=== PATIENT | female | born 2005 | race Caucasian/White ===

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

== ENCOUNTER 2023-08-08 16:53 | Emergency (ER) | payer OTHER ==
[~2023-08-08] VITALS: Ht 165.1 cm; Wt 104.3 kg
[2023-08-08 17:25] VITALS: BP 149/107
[2023-08-08] MEDS ORDERED: NS 1,000 ML IV SCH (17:30)
[2023-08-08 17:49] LABS: BASOPHILS ABSOLUTE AUTO 0.04 K/mm3 (0.00-0.23); BASOPHILS PERCENT AUTO 0 % (0-2); EOSINOPHILS ABSOLUTE AUTO 0.07 K/mm3 (0.00-0.68); EOSINOPHILS PERCENT AUTO 1 % (0-6); Hemoglobin 11.2 g/dL (11.5-16.0); IMMATURE GRAN ABSOLUTE AUTO 0.06 K/mm3 (0.00-0.10); IMMATURE GRAN PERCENT AUTO 1 % (0-1); LYMPHOCYTES ABSOLUTE AUTO 1.99 K/mm3 (0.84-5.20); LYMPHOCYTES PERCENT AUTO 19 % (21-46); MONOCYTES ABSOLUTE AUTO 0.77 K/mm3 (0.16-1.47); MONOCYTES PERCENT AUTO 7 % (4-13); Mean Corpuscular HGB 22.6 pg (26.0-34.0); Mean Corpuscular HGB Conc 31.1 g/dL (31.5-36.5); Mean Corpuscular Volume 73 fL (80-100); Mean Platelet Volume 10.2 fL (9.1-12.4); NEUTROPHILS ABSOLUTE AUTO 7.59 K/mm3 (1.96-9.15); NEUTROPHILS PERCENT AUTO 72 % (41-73); Platelet Count 359 K/mm3 (150-400); RDW Standard Deviation 43.9 fL (35.1-46.3); Red Blood Cell Count 4.95 M/mm3 (3.80-5.20); White Blood Cell Count 10.52 K/mm3 (4.00-11.30)
[2023-08-08 18:23] LABS: Albumin, Blood 3.2 g/dL (3.4-5.0); Albumin/Globulin Ratio 0.8 (0.8-1.8); Bilirubin, Total 0.2 mg/dL (0.1-1.0); Bun/Creatinine Ratio 12.9 (12.0-20.0); Calcium, Blood 8.6 mg/dL (8.5-10.1); Creatinine, Blood 0.46 mg/dL (0.40-1.00); Globulin, Blood 4.1 g/dL (2.2-4.0); Potassium, Blood 3.6 mmol/L (3.5-5.5); Total Protein, Blood 7.3 g/dL (6.4-8.2)
[2023-08-08 18:43] LABS: Source, Urine Clean Catch
[2023-08-08 18:47] LABS: Appearance, Urine Hazy (Clear); Bilirubin, Urine Neg (Neg); Blood, Urine Neg (Neg); Color, Urine Yellow (P-Yellow); Glucose Qualitative, Urine Neg (Neg); Ketones, Urine 1+ (Neg); Leukocyte Esterase, Urine 2+ (Neg); Nitrite, Urine Neg (Neg); Protein, Urine 1+ (Neg); Specific Gravity, Urine 1.025 (1.003-1.022); Urobilinogen, Urine NORM (Normal)
[2023-08-08 19:13] LABS: Bacteria Many /hpf; Red Blood Cells, Urine 0-2 /hpf (0-2); Squamous Epithelial Cells Many /hpf (Few)
[2023-08-08 19:14] LABS: Amorphous Light (0-Heavy); Mucus Heavy (0-Heavy)
[2023-08-08 19:15] LABS: Other Crystals Many /hpf
[2023-08-08 19:16] LABS: Transitional Epithelial Cells Rare /hpf (0-Rare)
== END 2023-08-08 19:30 | disposition home or self-care (01) ==
LOC: ER 16:53
PROVIDERS: Physician Assistant
DX: O26.891 Other specified pregnancy related conditions, first trimester (principal); R10.31 Right lower quadrant pain; R10.32 Left lower quadrant pain; R10.10 Upper abdominal pain, unspecified; Z3A.12 12 weeks gestation of pregnancy; Z88.0 Allergy status to penicillin; Z88.1 Allergy status to other antibiotic agents; Z91.040 Latex allergy status; J45.909 Unspecified asthma, uncomplicated
CPT/HCPCS: 76815; 80053; 81001; 84702; 85025; 87086; 96360; 99284-25; J7030

== ENCOUNTER 2024-01-30 20:27 | Inpatient (IN) | payer OTHER ==
[2024-01-30] VITALS (16 sets, daily range): BP systolic 131–168; BP diastolic 84–110
[~2024-01-30] VITALS: Ht 162.6 cm; Wt 119.1 kg
[2024-01-30] MEDS ORDERED: Misoprostol 200 MCG Tab PR PRN (20:55)
[2024-01-30] MEDS ORDERED: OXYTOCIN/RINGER'S LACTATE 500 ML IV PRN (20:55)
[2024-01-30] MEDS ORDERED: FentaNYL 2mcg/ml-Bup 0.1% Epd 250 ML EPI PRN (20:55)
[2024-01-30] MEDS ORDERED: Carboprost Tromethamine 250 MCG/ML 1ML Amp IM PRN (20:55)
[2024-01-30] MEDS ORDERED: Tranexamic Acid 100 ML IV SCH (20:55)
[2024-01-30] MEDS ORDERED: ePHEDrine Sulfate 50 MG/ML 1ML Injection XX PRN (20:55)
[2024-01-30] MEDS ORDERED: Acetaminophen 500 MG Tab PO PRN (20:55)
[2024-01-30] MEDS ORDERED: Misoprostol 200 MCG Tab BC PRN (20:55)
[2024-01-30] MEDS ORDERED: Oxytocin 10 Unit / ML Vial IM PRN (20:55)
[2024-01-30] MEDS ORDERED: Methylergonovine Maleate 0.2MG / ML 1ML Amp IM PRN (20:55)
[2024-01-30] MEDS ORDERED: Ondansetron HCl 2 MG / ML 2ML Vial IV PRN ×2 (20:55→22:55)
[2024-01-30] MEDS ORDERED: Lactated Ringer's 1,000 ML IV PRN ×3 (20:55→21:00)
[2024-01-30] MEDS ORDERED: FentaNYL Citrate 50 MCG/ML 2 ML Injection IV PRN (21:00)
[2024-01-30] MEDS ORDERED: Calcium Carbonate 500 MG Tab Chew PO PRN (21:00)
[2024-01-30] MEDS ORDERED: ACET500 PO (21:16)
[2024-01-30] MEDS ORDERED: UNISOM PM PAIN1 EACH PO (21:16)
[2024-01-30 21:30] LABS: BASOPHILS ABSOLUTE AUTO 0.04 K/mm3 (0.00-0.23); BASOPHILS PERCENT AUTO 0 % (0-2); EOSINOPHILS ABSOLUTE AUTO 0.01 K/mm3 (0.00-0.68); EOSINOPHILS PERCENT AUTO 0 % (0-6); Hematocrit 33.7 % (33.0-51.0); Hemoglobin 10.6 g/dL (11.5-16.0); IMMATURE GRAN PERCENT AUTO 1 % (0-1); LYMPHOCYTES ABSOLUTE AUTO 1.49 K/mm3 (0.84-5.20); LYMPHOCYTES PERCENT AUTO 9 % (21-46); MONOCYTES ABSOLUTE AUTO 0.92 K/mm3 (0.16-1.47); MONOCYTES PERCENT AUTO 6 % (4-13); Mean Corpuscular HGB 22.6 pg (26.0-34.0); Mean Corpuscular HGB Conc 31.5 g/dL (31.5-36.5); Mean Corpuscular Volume 72 fL (80-100); Mean Platelet Volume 11.2 fL (9.1-12.4); NEUTROPHILS ABSOLUTE AUTO 14.09 K/mm3 (1.96-9.15); NEUTROPHILS PERCENT AUTO 85 % (41-73); Platelet Count 301 K/mm3 (150-400); RDW Coefficient Variation 17.1 % (11.7-14.2); RDW Standard Deviation 43.4 fL (35.1-46.3); White Blood Cell Count 16.65 K/mm3 (4.00-11.30)
[2024-01-30] MEDS ORDERED: ePHEDrine Sulfate 50 MG/ML 1ML Injection IV PRN (22:50)
[2024-01-30] MEDS ORDERED: Metoclopramide HCl 5MG / ML 2ML Vial IV PRN (22:55)
[2024-01-30] MEDS ORDERED: DiphenhydrAMINE HCl 50 MG/ML 1ML Vial IV PRN (22:55)
[2024-01-30] MEDS ORDERED: Naloxone HCl 0.4MG / ML 1ML Vial IV PRN (22:55)
[2024-01-31] VITALS (74 sets, daily range): BP systolic 112–162; BP diastolic 64–98
[2024-01-31] MEDS ORDERED: Labetalol HCL 100 MG TAB PO ONE ×2 (00:25→11:55)
[2024-01-31] MEDS ORDERED: Lidocaine 2% 5 ML SDV ONE ×2 (00:42→00:58)
[2024-01-31] MEDS ORDERED: DiphenhydrAMINE HCl 50 MG/ML 1ML Vial IV PRN (04:15)
[2024-01-31] MEDS ORDERED: ePHEDrine Sulfate 50 MG/ML 1ML Injection IV PRN (04:15)
[2024-01-31] MEDS ORDERED: Naloxone HCl 0.4MG / ML 1ML Vial IV PRN (04:20)
[2024-01-31] MEDS ORDERED: Metoclopramide HCl 5MG / ML 2ML Vial IV PRN (04:20)
[2024-01-31] MEDS ORDERED: Ondansetron HCl 2 MG / ML 2ML Vial IV PRN (04:20)
[2024-01-31] MEDS ORDERED: Lidocaine HCl 2% 20 MG/ML 5ML SYR IV SCH (05:00)
[2024-01-31] MEDS ORDERED: Misoprostol 200 MCG Tab PR PRN (11:05)
[2024-01-31] MEDS ORDERED: OXYTOCIN/RINGER'S LACTATE 500 ML IV SCH (11:10)
[2024-01-31] MEDS ORDERED: Benzocaine Topical Anesthetic Spray 60GM TOP PRN (11:10)
[2024-01-31] MEDS ORDERED: Docusate Sodium 100 MG Cap PO PRN (11:10)
[2024-01-31] MEDS ORDERED: Rho(D) Immune Globulin 300 MCG / SYR IM ONE (11:10)
[2024-01-31] MEDS ORDERED: Acetaminophen 325 MG TABLET PO PRN (11:10)
[2024-01-31] MEDS ORDERED: Methylergonovine Maleate 0.2MG / ML 1ML Amp IM PRN (11:10)
[2024-01-31] MEDS ORDERED: Witch Hazel/Glycerin PADS TOP PRN (11:15)
[2024-01-31] MEDS ORDERED: FLU VACC TS2024-25(6MOS UP)/PF 45 MCG/0.5 ML SYRINGE IM PRN (11:15)
[2024-01-31] MEDS ORDERED: Lactated Ringer's 1,000 ML IV SCH (11:15)
[2024-01-31] MEDS ORDERED: Ibuprofen 400 MG Tab PO PRN (11:15)
[2024-01-31] MEDS ORDERED: Ketorolac Tromethamine 30mg Vial IV SCH (12:00)
[2024-01-31] MEDS ORDERED: Labetalol HCL 100 MG TAB PO SCH (21:00)
[2024-02-01 01:28] VITALS: BP 135/72
[2024-02-01 05:29] VITALS: BP 132/84
[2024-02-01] MEDS ORDERED: Ibuprofen 400 MG Tab PO PRN (06:00)
[2024-02-01 06:01] LABS: BASOPHILS ABSOLUTE AUTO 0.04 K/mm3 (0.00-0.23); BASOPHILS PERCENT AUTO 0 % (0-2); EOSINOPHILS ABSOLUTE AUTO 0.11 K/mm3 (0.00-0.68); EOSINOPHILS PERCENT AUTO 1 % (0-6); Hematocrit 26.4 % (33.0-51.0); Hemoglobin 8.4 g/dL (11.5-16.0); IMMATURE GRAN ABSOLUTE AUTO 0.12 K/mm3 (0.00-0.10); IMMATURE GRAN PERCENT AUTO 1 % (0-1); LYMPHOCYTES ABSOLUTE AUTO 2.43 K/mm3 (0.84-5.20); LYMPHOCYTES PERCENT AUTO 18 % (21-46); MONOCYTES ABSOLUTE AUTO 1.19 K/mm3 (0.16-1.47); MONOCYTES PERCENT AUTO 9 % (4-13); Mean Corpuscular HGB 22.8 pg (26.0-34.0); Mean Corpuscular HGB Conc 31.8 g/dL (31.5-36.5); Mean Corpuscular Volume 72 fL (80-100); Mean Platelet Volume 11.4 fL (9.1-12.4); NEUTROPHILS ABSOLUTE AUTO 9.38 K/mm3 (1.96-9.15); NEUTROPHILS PERCENT AUTO 71 % (41-73); Platelet Count 257 K/mm3 (150-400); RDW Coefficient Variation 17.4 % (11.7-14.2); RDW Standard Deviation 44.3 fL (35.1-46.3); Red Blood Cell Count 3.68 M/mm3 (3.80-5.20); White Blood Cell Count 13.27 K/mm3 (4.00-11.30)
[2024-02-01 07:48] VITALS: BP 137/85
[2024-02-01] MEDS ORDERED: Prenatal Vit/FE Fumarate/FA 1 Tab PO SCH (09:00)
== END 2024-02-01 13:50 | disposition home or self-care (01) | DRG 806 ==
LOC: OBS 20:27 → BC 20:29 → OBS 20:54 → BC 21:59
PROVIDERS: ADMIT Obstetrics & Gynecology
PROC: 10E0XZZ Delivery of Products of Conception, External Approach (ICD-10-PCS; principal; 2024-01-31)
PROC: 0KQM0ZZ Repair Perineum Muscle, Open Approach (ICD-10-PCS; 2024-01-31)
DX: O48.0 Post-term pregnancy (principal); O47.1 False labor at or after 37 completed weeks of gestation; O14.94 Unspecified pre-eclampsia, complicating childbirth; O70.1 Second degree perineal laceration during delivery; Z37.0 Single live birth; O99.214 Obesity complicating childbirth; Z3A.40 40 weeks gestation of pregnancy; Z88.1 Allergy status to other antibiotic agents; Z91.040 Latex allergy status; Z88.0 Allergy status to penicillin; Z88.8 Allergy status to other drugs, medicaments and biological substances; Z79.899 Other long term (current) drug therapy
CPT/HCPCS: 36415; 51702; 59025; 82570; 84156; 85025; 86850; 86900; 86901; 87210; 99214; A9270; J1885; J2590; J3010; J7120